=== PATIENT | female | born 1955 | race Caucasian/White ===

== ENCOUNTER 2018-07-25 17:03 | Inpatient (IN) | payer OTHER ==
[~2018-07-25] VITALS: Ht 154.9 cm; Wt 61.0 kg
--- NOTE | ~2018-07-25 | EKG ---
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
--- NOTE | ~2018-07-25 | CON ---
[place], [place] REPORT OF CONSULTATION NAME: ROSHAN CALLOWAY UNIT #: [id number] ROOM: 515 DOCTOR: SOMMER MIRAMONTES MD BIRTHDATE: [birth year] DOS: 07/26/2018 REASON FOR CONSULTATION: Chest pain. HISTORY OF PRESENT ILLNESS: The patient is a 63-year-old woman who has no previously documented coronary artery disease. She does have a history of chest discomfort and has undergone stress testing in the past. Her most recent stress test was done at [facility] in [place] on 10/01/2014. The study was normal with an ejection fraction of 76%. The patient does give a history of panic attacks. A few days ago, she began having what she felt might be a panic attack. She took an anxiolytic and her symptoms improved, but then came back and this time anxiolytics did not seem to help. She felt breathless and had a pressure in her left breast area as well as some lightheadedness. She has not had any acute EKG changes and thus far, her troponin has been normal. 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 She was therefore admitted to the hospital for further assessment. PAST MEDICAL HISTORY: Includes: 1. Tobacco abuse. 2. Dyspnea with exertion. 3. Anxiety disorder. 4. Essential hypertension. 5. History of panic attacks. 6. History of basal cell cancer resection. 7. History of hysterectomy. FAMILY HISTORY: Her father at age 68 from heart problems. Her mother at age 36 from uterine cancer. MEDICATIONS PRIOR TO ADMISSION: Alprazolam 0.5 mg p.o. p.r.n. anxiety, amlodipine 5 mg at bedtime, atorvastatin 10 mg at bedtime, buspirone 30 mg at bedtime, cholecalciferol 2000 units daily, fluoxetine 10 mg daily and metoprolol 50 mg at bedtime. ALLERGIES: She lists ALLERGIES TO CLAVULANIC ACID, AMOXICILLIN AND PENICILLINS. REVIEW OF SYSTEMS: The patient denies diplopia, loss of vision. She denies lightheadedness or syncope. She denies orthopnea or PND. She denies fevers, chills, sweats or recent weight change. Denies any focal weakness. She denies nausea or vomiting. She denies hemoptysis or hematemesis. She denies any skin rashes. She denies any heat or cold intolerance. She denies blood in her stools or urine. She denies melena or hematochezia. She denies any peripheral edema or history of blood clots in her legs. She denies cramping in her legs when she walks. She denies heat or cold intolerance and denies polyuria or polydipsia. The remainder of the review of systems is negative except as noted [place], [place] REPORT OF CONSULTATION NAME: ROSHAN CALLOWAY UNIT #: [id number] ROOM: [facility] DOCTOR: SOMMER MIRAMONTES MD BIRTHDATE: [birth year] above. 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 She does smoke a pack of cigarettes a day. PHYSICAL EXAMINATION: GENERAL: The patient is well-nourished white female, who is awake, alert and oriented. VITAL SIGNS: Pulse is 52 and regular, blood pressure is 128/64. She is afebrile and weighs 61 kilograms with a body mass index 25.4. HEENT: Normocephalic, atraumatic. Extraocular muscles are intact. Sclerae are clear. Pupils equal, round and react to light. The oral mucosa is moist. Tongue is midline. NECK: Supple. She has no jugular distention. Carotids are full. There are no bruits. She has no neck or supraclavicular masses and no thyromegaly. RESPIRATORY: Respirations are unlabored. Her chest is clear to auscultation and percussion. She has no presacral edema or chest wall tenderness. CARDIOVASCULAR: Her heart has a regular rhythm with a soft S4 gallop, but no S3 or murmur. The PMI is not displaced. She has no precordial heave, lift or thrill. ABDOMEN: Soft and normally active without masses, organomegaly or bruits. EXTREMITIES: Showed no edema. Peripheral pulses are easily palpated bilaterally. LABORATORY DATA: Hemoglobin is 13.4, white count 6600. Sodium 144, potassium 4.0, chloride 112, CO2 of 25, BUN 15, creatinine 0.86, serial troponin levels are normal. TSH is 1.55. I reviewed her electrocardiogram. It showed sinus rhythm with nonspecific ST and T-wave changes. No acute ST elevation was seen. IMPRESSION: 1. Atypical chest pain, myocardial infarction ruled out. 2. History of anxiety disorder with panic attacks. 3. History of essential hypertension. 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 PLAN: We will proceed with a pharmacologic stress test. Further recommendations depend upon the results of the stress test. Other causes for chest pain such as GI, musculoskeletal, etc. should also be considered. I thank the hospitalist physicians for asking our advice regarding her care. [place], [place] REPORT OF CONSULTATION NAME: ROSHAN CALLOWAY UNIT #: [id number] ROOM: [facility] DOCTOR: SOMMER MIRAMONTES MD BIRTHDATE: [birth year] SOMMER MIRAMONTES MD CM:CONSTR:REPORT OF CONSULTATION 1231 07/26/18 1356 interface
--- NOTE | ~2018-07-25 | EKG ---
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
--- NOTE | ~2018-07-25 | EKG ---
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
[~2018-07-25 17:03] MED LIST: ASPIRIN81 M1 PO; ATORVASTATIN CA10 M1 PO; BUSPIRONE30 MG PO; CIPRO250 MG PO; HYDROCHLOROTH12.5 M2 PO; KROGER NIC21 MG/24 H TD; METOPROLOL SUCC50 M1 PO; NORVASC5 MG PO; PROZAC20 MG PO; VICODIN ES 7501 TAB PO; VITAMIN D-32000 UNIT PO; XANAX0.25 MG PO; XANAX0.5 MG PO
[2018-07-25 17:04] VITALS: BP 141/78
[2018-07-25 17:23] LABS: BASO % 0.6 % (0.0-1.0); EOS # 0.1 10*3/uL (0.0-0.4); EOS % 1.4 % (1.0-4.0); HEMATOCRIT 42.6 % (37.0-47.0); HEMOGLOBIN 14.5 g/dl (12.0-16.0); LYMPH # 2.8 10*3/uL (1.3-4.4); LYMPH % 43.9 % (27.0-41.0); MEAN CELL VOLUME 89.1 fl (81.0-99.0); MEAN CORPUSCULAR HGB 30.3 pg (27.0-31.0); MEAN PLATELET VOLUME 10.9 fl (9.6-12.3); MONO # 0.5 10*3/uL (0.1-1.0); MONO % 7.6 % (3.0-9.0); NEUT % 46.3 % (47.0-73.0); PLATELET COUNT AUTOMATED 407 10*3/uL (130-400); RED BLOOD COUNT 4.78 10*6/uL (4.10-5.10); RED CELL DISTRI WIDTH 12.7 % (0-14.5); WHITE BLOOD COUNT 6.5 10*3/uL (4.8-10.8)
[2018-07-25 17:32] LABS: ACT PARTIAL THROMBO TIME 26.2 SECONDS (20.8-31.5)
[2018-07-25 17:39] LABS: LIPASE 130 U/L (73-393)
[2018-07-25 17:40] LABS: ALBUMIN 3.9 gm/dl (3.1-4.5); ALKALINE PHOSPHATASE 119 U/L (45-117); BUN 14 mg/dl (7-24); CHLORIDE 108 mmol/L (98-107); CREATININE 0.88 mg/dL (0.55-1.02); POTASSIUM 3.5 mmol/L (3.5-5.1); SGOT/AST 15 IU/L (3-35); SGPT/ALT 35 U/L (12-78); SODIUM 141 mmol/L (136-145)
[2018-07-25 17:44] LABS: TROPONIN I < 0.015 ng/ml (<0.045)
[2018-07-25 18:16] VITALS: BP 133/70
[2018-07-25 20:07] VITALS: BP 147/73
[2018-07-25] MEDS ORDERED: PROZAC10 MG PO (20:33)
[2018-07-26] VITALS: BP 111/55
[2018-07-26 06:35] LABS: BASO % 0.6 % (0.0-1.0); EOS # 0.1 10*3/uL (0.0-0.4); EOS % 2.1 % (1.0-4.0); HEMATOCRIT 40.9 % (37.0-47.0); HEMOGLOBIN 13.4 g/dl (12.0-16.0); LYMPH # 2.7 10*3/uL (1.3-4.4); LYMPH % 40.1 % (27.0-41.0); MEAN CELL VOLUME 90.7 fl (81.0-99.0); MEAN CORPUSCULAR HGB 29.7 pg (27.0-31.0); MEAN CORPUSCULAR HGB CONC 32.8 g/dl (33.0-37.0); MONO # 0.5 10*3/uL (0.1-1.0); MONO % 7.1 % (3.0-9.0); NEUT # 3.3 10*3/uL (2.3-7.9); NEUT % 49.9 % (47.0-73.0); PLATELET COUNT AUTOMATED 354 10*3/uL (130-400); RED BLOOD COUNT 4.51 10*6/uL (4.10-5.10); WHITE BLOOD COUNT 6.6 10*3/uL (4.8-10.8)
[2018-07-26 06:57] LABS: ALBUMIN 3.5 gm/dl (3.1-4.5); ALKALINE PHOSPHATASE 105 U/L (45-117); BUN 15 mg/dl (7-24); CHLORIDE 112 mmol/L (98-107); CHOLESTEROL 184 mg/dL (<200); CREATININE 0.86 mg/dL (0.55-1.02); HDL CHOLESTEROL 54 mg/dl (40-60); LDL CHOLESTEROL 112 mg/dL (9-159); PHOSPHOROUS 4.2 mg/dL (2.5-4.9); SGOT/AST 14 IU/L (3-35); SGPT/ALT 31 U/L (12-78); SODIUM 144 mmol/L (136-145); TOTAL PROTEIN 7.2 gm/dL (6.4-8.2); TRIGLYCERIDES 92 mg/dl (<150); VLDL CHOLESTEROL 18 mg/dL (6-40)
[2018-07-26 07:08] LABS: ACT PARTIAL THROMBO TIME 25.5 SECONDS (20.8-31.5)
[2018-07-26 08:00] VITALS: BP 128/64
[2018-07-26 09:36] LABS: VITAMIN D, 25-HYDROXY 42.9 ng/mL (30-100)
[2018-07-26 16:00] VITALS: BP 118/55
== END 2018-07-26 18:14 | disposition home or self-care (01) | DRG 392 ==
LOC: ED 17:03 → EDHOLD 18:23 → 5E 18:23 → EDHOLD 18:31 → 5E 18:46
PROVIDERS: Emergency Medicine; Family Medicine; ADMIT Internal Medicine
PROC: 4A02XM4 Measurement of Cardiac Total Activity, External Approach (ICD-10-PCS; principal; 2018-07-26)
PROC: 3E073KZ Introduction of Other Diagnostic Substance into Coronary Artery, Percutaneous Approach (ICD-10-PCS; 2018-07-26)
DX: K21.9 Gastro-esophageal reflux disease without esophagitis (principal); E44.0 Moderate protein-calorie malnutrition; M94.0 Chondrocostal junction syndrome [Tietze]; E87.8 Other disorders of electrolyte and fluid balance, not elsewhere classified; E83.41 Hypermagnesemia; I10 Essential (primary) hypertension; F32.9 Major depressive disorder, single episode, unspecified; F41.0 Panic disorder [episodic paroxysmal anxiety]; F17.210 Nicotine dependence, cigarettes, uncomplicated; R73.9 Hyperglycemia, unspecified; R06.09 Other forms of dyspnea; E78.00 Pure hypercholesterolemia, unspecified; Z88.1 Allergy status to other antibiotic agents; Z88.0 Allergy status to penicillin; Z71.6 Tobacco abuse counseling; Z68.25 Body mass index [BMI] 25.0-25.9, adult; Z90.710 Acquired absence of both cervix and uterus; Z82.49 Family history of ischemic heart disease and other diseases of the circulatory system; Z80.49 Family history of malignant neoplasm of other genital organs; Z79.899 Other long term (current) drug therapy

== ENCOUNTER → 2018-12-30 | Outpatient (CLI) | payer OTHER ==
[~2018-12-30] MED LIST changes: +PROZAC10 MG PO
[2018-12-30 08:22] LABS: BASO # 0.1 10*3/uL (0.0-0.1); BASO % 0.7 % (0.0-1.0); EOS # 0.1 10*3/uL (0.0-0.4); EOS % 1.1 % (1.0-4.0); HEMATOCRIT 44.3 % (37.0-47.0); HEMOGLOBIN 14.6 g/dl (12.0-16.0); LYMPH # 2.2 10*3/uL (1.3-4.4); LYMPH % 25.8 % (27.0-41.0); MEAN CELL VOLUME 93.5 fl (81.0-99.0); MEAN CORPUSCULAR HGB 30.8 pg (27.0-31.0); MEAN PLATELET VOLUME 11.6 fl (9.6-12.3); MONO # 0.6 10*3/uL (0.1-1.0); MONO % 6.7 % (3.0-9.0); NEUT # 5.6 10*3/uL (2.3-7.9); NEUT % 65.3 % (47.0-73.0); PLATELET COUNT AUTOMATED 401 10*3/uL (130-400); RED BLOOD COUNT 4.74 10*6/uL (4.10-5.10); RED CELL DISTRI WIDTH 14.2 % (0-14.5); WHITE BLOOD COUNT 8.5 10*3/uL (4.8-10.8)
[2018-12-30 08:51] LABS: ALBUMIN 4.1 gm/dl (3.1-4.5); ALKALINE PHOSPHATASE 119 U/L (45-117); BILIRUBIN, DIRECT < 0.1 mg/dL (0.0-0.2); FREE T4 0.98 ng/dl (0.76-1.46); SGOT/AST 15 IU/L (3-35); SGPT/ALT 24 U/L (12-78); TOTAL PROTEIN 8.1 gm/dL (6.4-8.2)
[2018-12-30 08:56] LABS: THYROID STIM HORMONE (HS) 0.948 uIU/ml (0.358-4.75)
[2018-12-31 05:05] LABS: THYROID PEROXIDASE (TPO) AB 13 IU/mL (0-34)
[2018-12-31 15:05] LABS: THYROGLOBULIN ANTIBODY <1.0 IU/mL (0.0-0.9)
== END | disposition home or self-care (01) ==
LOC: LAB 07:14
PROVIDERS: Internal Medicine
DX: E04.9 Nontoxic goiter, unspecified (principal); E05.90 Thyrotoxicosis, unspecified without thyrotoxic crisis or storm; E27.40 Unspecified adrenocortical insufficiency